=== PATIENT | female | born 1960 | race Two or more races ===

== ENCOUNTER 2019-07-19 18:30 | Inpatient (IN) | payer OTHER ==
[~2019-07-19] VITALS: Ht 165.1 cm; Wt 105.7 kg
[2019-07-19 19:00] VITALS: BP 125/67
[2019-07-19] MEDS ORDERED: NAPROXEN 250 MG TABLET PO PRN (20:00)
[2019-07-19] MEDS ORDERED: DEXTROSE 50%-WATER 25 GM/50 ML SYRINGE IVP PRN (20:00)
[2019-07-19] MEDS ORDERED: LACTULOSE 20 GM/30 ML SOLUTION UDCUP PO PRN (20:00)
[2019-07-19] MEDS ORDERED: BISACODYL 10 MG RECTAL RECTAL SUPPOSITORY PR PRN (20:00)
[2019-07-19] MEDS ORDERED: ATORVASTATIN CALCIUM 40 MG TABLET PO SCH (21:00)
[2019-07-19] MEDS: ACETAMINOPHEN 325 MG TABLET PO PRN (21:50)
[2019-07-19] MEDS: ENOXAPARIN SODIUM 40 MG/0.4 ML PF SYRINGE SQ SCH (21:50)
[2019-07-19] MEDS: DOCUSATE SODIUM 100 MG CAPSULE PO SCH (21:50)
[2019-07-19] MEDS: SENNA 187 MG TABLET PO SCH (21:50)
[2019-07-19 21:53] LABS: GLUCOMETER DEV NAME(LOC) 2WR.2; GLUCOSE,POINT OF CARE 240 MG/DL (70-110)
[2019-07-19] MEDS: INSULIN GLARGINE,HUM.REC.ANLOG 100 UNITS/ML SQ SCH (21:57)
[2019-07-19 22:50] VITALS: BP 120/73
[2019-07-20 06:27] LABS: GLUCOMETER DEV NAME(LOC) PVLAB.8; GLUCOSE,POINT OF CARE 138 MG/DL (70-110)
[2019-07-20 06:41] LABS: BASOPHILS % (AUTO) 0.3 % (0.0-2.0); HEMATOCRIT 38.5 % (36-46); HEMOGLOBIN 12.7 g/dL (12.0-16.0); LYMPHOCYTES # (AUTO) 4.7 K/uL (1.0-4.8); LYMPHOCYTES % (AUTO) 45.1 % (22.0-44.0); MEAN CORPUSCULAR HEMOGLOBIN 27.7 pg (26.0-34.0); MEAN CORPUSCULAR VOLUME 84 fL (80-100); MONOCYTES # (AUTO) 0.6 K/uL (0.1-1.0); MONOCYTES % (AUTO) 5.6 % (2.0-9.0); NEUTROPHILS # (AUTO) 4.8 K/uL (1.8-7.7); PLATELET COUNT (AUTO) 244 K/uL (150-450); RED BLOOD CELL COUNT(AUTO) 4.58 MIL/uL (4.00-5.20); RED CELL DISTRIBUTION WIDTH 14.2 % (11.5-14.5)
[2019-07-20 06:53] LABS: ALANINE AMINOTRANSFERASE 27 U/L (12-78); ALBUMIN 2.9 g/dL (3.4-5.0); ALKALINE PHOSPHATASE 117 U/L (46-116); ANION GAP 7 mmol/L (8-16); ASPARTATE AMINOTRANSFERASE 28 U/L (15-37); BILIRUBIN,TOTAL 0.4 mg/dL (0.1-1.0); CALCIUM, TOTAL 8.7 mg/dL (8.8-10.5); CARBON DIOXIDE 30 mmol/L (22-29); CHLORIDE 104 mmol/L (98-107); CREATININE 0.81 mg/dL (0.60-1.30); GLOMERULAR FILTR. RATE CALC > 60 mL/min (>60); GLUCOSE,RANDOM 150 mg/dL (70-110); POTASSIUM 4.1 mmol/L (3.5-5.1); SODIUM SERUM 141 mmol/L (136-145); TOTAL PROTEIN, SERUM 7.2 g/dL (6.4-8.2); UREA NITROGEN, BLOOD 13 mg/dL (7-18)
[2019-07-20] MEDS: ASPIRIN 81 MG CHEWABLE TABLET PO SCH (08:09)
[2019-07-20] MEDS: DOCUSATE SODIUM 100 MG CAPSULE PO SCH ×2 (08:12→20:34)
[2019-07-20 08:52] VITALS: BP 113/68
[2019-07-20] MEDS: ACETAMINOPHEN 325 MG TABLET PO PRN (08:52)
[2019-07-20] MEDS: TraMADol HCL 50 MG TABLET PO PRN (11:17)
[2019-07-20] MEDS: INSULIN LISPRO 100 UNITS/ML SQ PRN ×3 (12:31→22:02)
[2019-07-20 14:10] LABS: GLUCOMETER DEV NAME(LOC) 2WR.2; GLUCOSE,POINT OF CARE 180 MG/DL (70-110)
[2019-07-20 15:30] VITALS: BP 96/56
[2019-07-20 17:48] LABS: GLUCOMETER DEV NAME(LOC) 2WR.2; GLUCOSE,POINT OF CARE 147 MG/DL (70-110)
[2019-07-20] MEDS: SENNA 187 MG TABLET PO SCH ×2 (20:34→20:36)
[2019-07-20] MEDS: SIMVASTATIN 40 MG TABLET PO SCH (20:34)
[2019-07-20] MEDS: ENOXAPARIN SODIUM 40 MG/0.4 ML PF SYRINGE SQ SCH (20:34)
[2019-07-20] MEDS: INSULIN GLARGINE,HUM.REC.ANLOG 100 UNITS/ML SQ SCH (21:05)
[2019-07-20 21:11] LABS: GLUCOMETER DEV NAME(LOC) 2WR.2; GLUCOSE,POINT OF CARE 171 MG/DL (70-110)
[2019-07-21 06:33] VITALS: BP 101/55
[2019-07-21 06:35] LABS: GLUCOMETER DEV NAME(LOC) 2WR.1C; GLUCOSE,POINT OF CARE 133 MG/DL (70-110)
[2019-07-21] MEDS: ASPIRIN 81 MG CHEWABLE TABLET PO SCH (07:49)
[2019-07-21] MEDS: DOCUSATE SODIUM 100 MG CAPSULE PO SCH ×2 (07:49→21:22)
[2019-07-21 08:56] VITALS: BP 112/56
[2019-07-21] MEDS: INSULIN LISPRO 100 UNITS/ML SQ PRN ×3 (12:45→21:33)
[2019-07-21 14:05] VITALS: BP 131/75
[2019-07-21] MEDS: TraMADol HCL 50 MG TABLET PO PRN (14:18)
[2019-07-21 15:05] VITALS: BP 116/66
[2019-07-21] MEDS ORDERED: *PATIENT'S OWN MED [ENTER DRUG, DOSE, FREQUENCY IN COMMENTS] CLINICAL ONE (17:15)
[2019-07-21 17:38] LABS: GLUCOMETER DEV NAME(LOC) 2WR.1C; GLUCOSE,POINT OF CARE 160 MG/DL (70-110)
[2019-07-21 17:38] LABS: GLUCOMETER DEV NAME(LOC) 2WR.1C; GLUCOSE,POINT OF CARE 142 MG/DL (70-110)
[2019-07-21] MEDS: ENOXAPARIN SODIUM 40 MG/0.4 ML PF SYRINGE SQ SCH (21:21)
[2019-07-21] MEDS: KETOTIFEN OU SCH (21:21)
[2019-07-21] MEDS: SIMVASTATIN 40 MG TABLET PO SCH (21:22)
[2019-07-21] MEDS: SENNA 187 MG TABLET PO SCH (21:22)
[2019-07-21] MEDS: INSULIN GLARGINE,HUM.REC.ANLOG 100 UNITS/ML SQ SCH (21:32)
[2019-07-21 22:09] LABS: GLUCOMETER DEV NAME(LOC) 2WR.2; GLUCOSE,POINT OF CARE 180 MG/DL (70-110)
[2019-07-22 00:28] VITALS: BP 125/71
[2019-07-22 06:27] LABS: GLUCOMETER DEV NAME(LOC) 2WR.1C; GLUCOSE,POINT OF CARE 146 MG/DL (70-110)
[2019-07-22 07:15] VITALS: BP 107/71
[2019-07-22] MEDS: KETOTIFEN OU SCH ×2 (07:54→21:05)
[2019-07-22] MEDS: ASPIRIN 81 MG CHEWABLE TABLET PO SCH (07:54)
[2019-07-22] MEDS: DOCUSATE SODIUM 100 MG CAPSULE PO SCH ×2 (07:55→21:02)
[2019-07-22] MEDS: INSULIN LISPRO 100 UNITS/ML SQ PRN ×3 (07:59→21:13)
[2019-07-22] MEDS: ACETAMINOPHEN 325 MG TABLET PO PRN ×2 (10:14→14:16)
[2019-07-22 12:47] LABS: GLUCOMETER DEV NAME(LOC) 2WR.2; GLUCOSE,POINT OF CARE 191 MG/DL (70-110)
[2019-07-22 15:10] VITALS: BP 140/66
[2019-07-22 19:11] LABS: GLUCOMETER DEV NAME(LOC) 2WR.2; GLUCOSE,POINT OF CARE 150 MG/DL (70-110)
[2019-07-22] MEDS: SENNA 187 MG TABLET PO SCH (21:02)
[2019-07-22] MEDS: SIMVASTATIN 40 MG TABLET PO SCH (21:02)
[2019-07-22] MEDS: ENOXAPARIN SODIUM 40 MG/0.4 ML PF SYRINGE SQ SCH (21:03)
[2019-07-22] MEDS: INSULIN GLARGINE,HUM.REC.ANLOG 100 UNITS/ML SQ SCH (21:12)
[2019-07-22 22:25] LABS: GLUCOMETER DEV NAME(LOC) 2WR.1C; GLUCOSE,POINT OF CARE 242 MG/DL (70-110)
[2019-07-23 06:34] VITALS: BP 99/59
[2019-07-23 06:40] LABS: GLUCOMETER DEV NAME(LOC) 2WR.2; GLUCOSE,POINT OF CARE 190 MG/DL (70-110)
[2019-07-23] MEDS: ASPIRIN 81 MG CHEWABLE TABLET PO SCH (07:55)
[2019-07-23] MEDS: KETOTIFEN OU SCH ×2 (07:55→20:50)
[2019-07-23] MEDS: DOCUSATE SODIUM 100 MG CAPSULE PO SCH ×2 (07:55→20:49)
[2019-07-23] MEDS: INSULIN LISPRO 100 UNITS/ML SQ PRN ×4 (07:56→20:54)
[2019-07-23 08:16] VITALS: BP 102/65
[2019-07-23] MEDS: ACETAMINOPHEN 325 MG TABLET PO PRN (08:16)
[2019-07-23] MEDS: DULoxetine HCL 30 MG CAPSULE PO SCH (12:22)
[2019-07-23 15:45] VITALS: BP 98/54
[2019-07-23] MEDS: GABAPENTIN 100 MG CAPSULE PO SCH ×3 (16:36→21:00)
[2019-07-23] MEDS: SIMVASTATIN 40 MG TABLET PO SCH (20:49)
[2019-07-23] MEDS: SENNA 187 MG TABLET PO SCH (20:49)
[2019-07-23] MEDS: INSULIN GLARGINE,HUM.REC.ANLOG 100 UNITS/ML SQ SCH (20:53)
[2019-07-23] MEDS: ENOXAPARIN SODIUM 40 MG/0.4 ML PF SYRINGE SQ SCH (20:57)
[2019-07-23 23:09] LABS: GLUCOMETER DEV NAME(LOC) 2WR.1C; GLUCOSE,POINT OF CARE 146 MG/DL (70-110)
[2019-07-23 23:09] LABS: GLUCOMETER DEV NAME(LOC) 2WR.1C; GLUCOSE,POINT OF CARE 240 MG/DL (70-110)
[2019-07-23 23:09] LABS: GLUCOMETER DEV NAME(LOC) 2WR.1C; GLUCOSE,POINT OF CARE 142 MG/DL (70-110)
[2019-07-23 23:11] VITALS: BP 131/76
[2019-07-24 05:49] LABS: GLUCOMETER DEV NAME(LOC) 2WR.1C; GLUCOSE,POINT OF CARE 123 MG/DL (70-110)
[2019-07-24 07:50] VITALS: BP 116/73
[2019-07-24] MEDS: GABAPENTIN 100 MG CAPSULE PO SCH ×2 (08:00→16:00)
[2019-07-24] MEDS: DULoxetine HCL 30 MG CAPSULE PO SCH (08:00)
[2019-07-24] MEDS: ASPIRIN 81 MG CHEWABLE TABLET PO SCH (08:01)
[2019-07-24] MEDS: KETOTIFEN OU SCH ×2 (08:01→20:41)
[2019-07-24] MEDS: DOCUSATE SODIUM 100 MG CAPSULE PO SCH ×2 (08:01→20:41)
[2019-07-24] MEDS: ACETAMINOPHEN 325 MG TABLET PO PRN (09:24)
[2019-07-24 15:47] VITALS: BP 113/70
[2019-07-24] MEDS: INSULIN LISPRO 100 UNITS/ML SQ PRN ×2 (18:04→20:55)
[2019-07-24] MEDS: ENOXAPARIN SODIUM 40 MG/0.4 ML PF SYRINGE SQ SCH (20:41)
[2019-07-24] MEDS: SIMVASTATIN 40 MG TABLET PO SCH (20:41)
[2019-07-24] MEDS: SENNA 187 MG TABLET PO SCH (20:42)
[2019-07-24] MEDS: INSULIN GLARGINE,HUM.REC.ANLOG 100 UNITS/ML SQ SCH (20:54)
[2019-07-24] MEDS ORDERED: [UNRECOGNIZED DRUG - OTHER] OU SCH (21:00)
[2019-07-24 21:10] LABS: GLUCOMETER DEV NAME(LOC) 2WR.1C; GLUCOSE,POINT OF CARE 171 MG/DL (70-110)
[2019-07-24 21:10] LABS: GLUCOMETER DEV NAME(LOC) 2WR.1C; GLUCOSE,POINT OF CARE 149 MG/DL (70-110)
[2019-07-24 21:10] LABS: GLUCOMETER DEV NAME(LOC) 2WR.1C; GLUCOSE,POINT OF CARE 203 MG/DL (70-110)
[2019-07-24 23:58] VITALS: BP 117/70
[2019-07-25 05:53] LABS: GLUCOMETER DEV NAME(LOC) 2WR.1C; GLUCOSE,POINT OF CARE 139 MG/DL (70-110)
[2019-07-25 07:00] VITALS: BP 99/53
[2019-07-25] MEDS: DOCUSATE SODIUM 100 MG CAPSULE PO SCH ×2 (09:03→20:56)
[2019-07-25] MEDS: DULoxetine HCL 30 MG CAPSULE PO SCH (09:03)
[2019-07-25] MEDS: ASPIRIN 81 MG CHEWABLE TABLET PO SCH (09:03)
[2019-07-25] MEDS: INSULIN LISPRO 100 UNITS/ML SQ PRN ×2 (12:22→21:06)
[2019-07-25 12:23] LABS: GLUCOMETER DEV NAME(LOC) 2WR.1C; GLUCOSE,POINT OF CARE 163 MG/DL (70-110)
[2019-07-25 15:30] VITALS: BP 122/68
[2019-07-25 20:47] LABS: GLUCOMETER DEV NAME(LOC) 2WR.1C; GLUCOSE,POINT OF CARE 136 MG/DL (70-110)
[2019-07-25] MEDS: SENNA 187 MG TABLET PO SCH (20:56)
[2019-07-25] MEDS: SIMVASTATIN 40 MG TABLET PO SCH (20:56)
[2019-07-25] MEDS: ENOXAPARIN SODIUM 40 MG/0.4 ML PF SYRINGE SQ SCH (20:56)
[2019-07-25] MEDS: KETOTIFEN OU SCH (20:56)
[2019-07-25] MEDS: INSULIN GLARGINE,HUM.REC.ANLOG 100 UNITS/ML SQ SCH (21:05)
[2019-07-25 21:42] LABS: GLUCOMETER DEV NAME(LOC) 2WR.2; GLUCOSE,POINT OF CARE 202 MG/DL (70-110)
[2019-07-25 23:38] VITALS: BP 124/63
[2019-07-26 06:39] LABS: GLUCOMETER DEV NAME(LOC) 2WR.1C; GLUCOSE,POINT OF CARE 125 MG/DL (70-110)
[2019-07-26 07:30] VITALS: BP 127/78
[2019-07-26] MEDS: DOCUSATE SODIUM 100 MG CAPSULE PO SCH ×2 (08:05→21:37)
[2019-07-26] MEDS: DULoxetine HCL 30 MG CAPSULE PO SCH (08:05)
[2019-07-26] MEDS: ASPIRIN 81 MG CHEWABLE TABLET PO SCH (08:06)
[2019-07-26] MEDS: ACETAMINOPHEN 325 MG TABLET PO PRN ×2 (08:23→15:36)
[2019-07-26] MEDS: INSULIN LISPRO 100 UNITS/ML SQ PRN ×2 (12:46→21:41)
[2019-07-26 12:53] LABS: GLUCOMETER DEV NAME(LOC) 2WR.2; GLUCOSE,POINT OF CARE 146 MG/DL (70-110)
[2019-07-26 15:00] VITALS: BP 119/75
[2019-07-26 18:41] LABS: GLUCOMETER DEV NAME(LOC) 2WR.2; GLUCOSE,POINT OF CARE 127 MG/DL (70-110)
[2019-07-26] MEDS: SIMVASTATIN 40 MG TABLET PO SCH (21:36)
[2019-07-26] MEDS: ENOXAPARIN SODIUM 40 MG/0.4 ML PF SYRINGE SQ SCH (21:36)
[2019-07-26] MEDS: KETOTIFEN OU SCH (21:36)
[2019-07-26] MEDS: SENNA 187 MG TABLET PO SCH (21:36)
[2019-07-26] MEDS: INSULIN GLARGINE,HUM.REC.ANLOG 100 UNITS/ML SQ SCH (21:40)
[2019-07-26 22:05] LABS: GLUCOMETER DEV NAME(LOC) 2WR.1C; GLUCOSE,POINT OF CARE 196 MG/DL (70-110)
[2019-07-27 00:06] VITALS: BP 103/73
[2019-07-27 06:20] LABS: GLUCOMETER DEV NAME(LOC) 2WR.2; GLUCOSE,POINT OF CARE 124 MG/DL (70-110)
[2019-07-27] MEDS: ASPIRIN 81 MG CHEWABLE TABLET PO SCH (08:26)
[2019-07-27] MEDS: DOCUSATE SODIUM 100 MG CAPSULE PO SCH ×2 (08:26→21:25)
[2019-07-27] MEDS: DULoxetine HCL 30 MG CAPSULE PO SCH (08:26)
[2019-07-27 08:36] VITALS: BP 114/70
[2019-07-27 12:22] LABS: GLUCOMETER DEV NAME(LOC) 2WR.2; GLUCOSE,POINT OF CARE 147 MG/DL (70-110)
[2019-07-27] MEDS: INSULIN LISPRO 100 UNITS/ML SQ PRN ×3 (12:29→21:32)
[2019-07-27] MEDS: ACETAMINOPHEN 325 MG TABLET PO PRN (13:26)
[2019-07-27 16:00] VITALS: BP 155/88
[2019-07-27 18:17] LABS: GLUCOMETER DEV NAME(LOC) 2WR.2; GLUCOSE,POINT OF CARE 145 MG/DL (70-110)
[2019-07-27] MEDS: ENOXAPARIN SODIUM 40 MG/0.4 ML PF SYRINGE SQ SCH (21:24)
[2019-07-27] MEDS: SIMVASTATIN 40 MG TABLET PO SCH (21:25)
[2019-07-27] MEDS: SENNA 187 MG TABLET PO SCH (21:25)
[2019-07-27] MEDS: KETOTIFEN OU SCH (21:25)
[2019-07-27] MEDS: INSULIN GLARGINE,HUM.REC.ANLOG 100 UNITS/ML SQ SCH (21:31)
[2019-07-27 21:51] LABS: GLUCOMETER DEV NAME(LOC) 2WR.2; GLUCOSE,POINT OF CARE 143 MG/DL (70-110)
[2019-07-28 06:14] VITALS: BP 92/58
[2019-07-28 06:20] LABS: GLUCOMETER DEV NAME(LOC) 2WR.1C; GLUCOSE,POINT OF CARE 127 MG/DL (70-110)
[2019-07-28 07:17] VITALS: BP 137/78
[2019-07-28] MEDS: ASPIRIN 81 MG CHEWABLE TABLET PO SCH (08:18)
[2019-07-28] MEDS: DULoxetine HCL 30 MG CAPSULE PO SCH (08:18)
[2019-07-28] MEDS: DOCUSATE SODIUM 100 MG CAPSULE PO SCH ×2 (08:18→20:16)
[2019-07-28] MEDS: ACETAMINOPHEN 325 MG TABLET PO PRN (09:06)
[2019-07-28 11:56] LABS: GLUCOMETER DEV NAME(LOC) 2WR.2; GLUCOSE,POINT OF CARE 115 MG/DL (70-110)
[2019-07-28 15:49] VITALS: BP 115/72
[2019-07-28] MEDS: INSULIN LISPRO 100 UNITS/ML SQ PRN ×2 (18:14→20:15)
[2019-07-28 18:25] LABS: GLUCOMETER DEV NAME(LOC) 2WR.1C; GLUCOSE,POINT OF CARE 142 MG/DL (70-110)
[2019-07-28] MEDS: INSULIN GLARGINE,HUM.REC.ANLOG 100 UNITS/ML SQ SCH (20:15)
[2019-07-28] MEDS: SIMVASTATIN 40 MG TABLET PO SCH (20:16)
[2019-07-28] MEDS: ENOXAPARIN SODIUM 40 MG/0.4 ML PF SYRINGE SQ SCH (20:16)
[2019-07-28] MEDS: SENNA 187 MG TABLET PO SCH (20:16)
[2019-07-28] MEDS: KETOTIFEN OU SCH (20:17)
[2019-07-28 20:39] LABS: GLUCOMETER DEV NAME(LOC) 2WR.2; GLUCOSE,POINT OF CARE 167 MG/DL (70-110)
[2019-07-28 23:44] VITALS: BP 125/79
[2019-07-29 04:28] VITALS: BP 132/74
[2019-07-29 06:16] LABS: GLUCOMETER DEV NAME(LOC) 2WR.2; GLUCOSE,POINT OF CARE 139 MG/DL (70-110)
[2019-07-29 07:37] VITALS: BP 128/68
[2019-07-29] MEDS: DOCUSATE SODIUM 100 MG CAPSULE PO SCH ×2 (08:16→20:48)
[2019-07-29] MEDS: ASPIRIN 81 MG CHEWABLE TABLET PO SCH (08:16)
[2019-07-29] MEDS: DULoxetine HCL 30 MG CAPSULE PO SCH ×2 (08:16→09:00)
[2019-07-29 12:56] LABS: GLUCOMETER DEV NAME(LOC) 2WR.2; GLUCOSE,POINT OF CARE 121 MG/DL (70-110)
[2019-07-29 15:30] VITALS: BP 115/69
[2019-07-29] MEDS: INSULIN LISPRO 100 UNITS/ML SQ PRN ×2 (18:47→20:53)
[2019-07-29] MEDS: KETOTIFEN OU SCH (20:48)
[2019-07-29] MEDS: SENNA 187 MG TABLET PO SCH (20:48)
[2019-07-29] MEDS: SIMVASTATIN 40 MG TABLET PO SCH (20:48)
[2019-07-29] MEDS: ENOXAPARIN SODIUM 40 MG/0.4 ML PF SYRINGE SQ SCH (20:48)
[2019-07-29] MEDS: INSULIN GLARGINE,HUM.REC.ANLOG 100 UNITS/ML SQ SCH (20:52)
[2019-07-29 22:16] LABS: GLUCOMETER DEV NAME(LOC) 2WR.1C; GLUCOSE,POINT OF CARE 144 MG/DL (70-110)
[2019-07-30 00:28] LABS: GLUCOMETER DEV NAME(LOC) 2WR.2; GLUCOSE,POINT OF CARE 159 MG/DL (70-110)
[2019-07-30 02:34] VITALS: BP 122/67
[2019-07-30] MEDS: ACETAMINOPHEN 325 MG TABLET PO PRN ×2 (02:34→09:08)
[2019-07-30 06:31] LABS: GLUCOMETER DEV NAME(LOC) 2WR.2; GLUCOSE,POINT OF CARE 153 MG/DL (70-110)
[2019-07-30 07:30] VITALS: BP 127/69
[2019-07-30] MEDS: DOCUSATE SODIUM 100 MG CAPSULE PO SCH ×2 (07:45→21:15)
[2019-07-30] MEDS: ASPIRIN 81 MG CHEWABLE TABLET PO SCH (07:45)
[2019-07-30] MEDS: DULoxetine HCL 30 MG CAPSULE PO SCH (07:46)
[2019-07-30] MEDS: INSULIN LISPRO 100 UNITS/ML SQ PRN ×3 (07:49→21:20)
[2019-07-30 16:42] VITALS: BP 107/67
[2019-07-30 17:42] LABS: GLUCOMETER DEV NAME(LOC) 2WR.1C; GLUCOSE,POINT OF CARE 146 MG/DL (70-110)
[2019-07-30 17:42] LABS: GLUCOMETER DEV NAME(LOC) 2WR.1C; GLUCOSE,POINT OF CARE 131 MG/DL (70-110)
[2019-07-30] MEDS: KETOTIFEN OU SCH (21:15)
[2019-07-30] MEDS: SIMVASTATIN 40 MG TABLET PO SCH (21:15)
[2019-07-30] MEDS: SENNA 187 MG TABLET PO SCH (21:15)
[2019-07-30] MEDS: INSULIN GLARGINE,HUM.REC.ANLOG 100 UNITS/ML SQ SCH (21:19)
[2019-07-30 21:32] LABS: GLUCOMETER DEV NAME(LOC) 2WR.1C; GLUCOSE,POINT OF CARE 241 MG/DL (70-110)
[2019-07-30] MEDS ORDERED: DOCU-275 PO (23:01)
[2019-07-30] MEDS ORDERED: ASPI81TA39 PO (23:01)
[2019-07-30] MEDS ORDERED: KETO10DR3 OU (23:02)
[2019-07-30] MEDS ORDERED: SIMV-261 PO (23:02)
[2019-07-30] MEDS ORDERED: INSLAN SQ (23:03)
[2019-07-30] MEDS ORDERED: INSU100V SQ (23:03)
[2019-07-30 23:30] VITALS: BP 115/57
[2019-07-31 06:23] LABS: GLUCOMETER DEV NAME(LOC) 2WR.2; GLUCOSE,POINT OF CARE 144 MG/DL (70-110)
[2019-07-31 07:30] VITALS: BP 99/71
[2019-07-31] MEDS: ASPIRIN 81 MG CHEWABLE TABLET PO SCH (07:30)
[2019-07-31] MEDS: ACETAMINOPHEN 325 MG TABLET PO PRN (07:30)
[2019-07-31] MEDS: DOCUSATE SODIUM 100 MG CAPSULE PO SCH ×2 (07:31→20:11)
[2019-07-31] MEDS: INSULIN LISPRO 100 UNITS/ML SQ PRN ×3 (07:33→20:21)
[2019-07-31 12:21] LABS: GLUCOMETER DEV NAME(LOC) 2WR.2; GLUCOSE,POINT OF CARE 146 MG/DL (70-110)
[2019-07-31 16:29] VITALS: BP 104/59
[2019-07-31 17:44] LABS: GLUCOMETER DEV NAME(LOC) 2WR.1C; GLUCOSE,POINT OF CARE 134 MG/DL (70-110)
[2019-07-31] MEDS: KETOTIFEN OU SCH (20:11)
[2019-07-31] MEDS: SENNA 187 MG TABLET PO SCH (20:11)
[2019-07-31] MEDS: SIMVASTATIN 40 MG TABLET PO SCH (20:11)
[2019-07-31] MEDS: INSULIN GLARGINE,HUM.REC.ANLOG 100 UNITS/ML SQ SCH (20:20)
[2019-07-31 21:36] LABS: GLUCOMETER DEV NAME(LOC) 2WR.1C; GLUCOSE,POINT OF CARE 192 MG/DL (70-110)
[2019-08-01 05:08] VITALS: BP 97/63
[2019-08-01 07:47] VITALS: BP 107/87
[2019-08-01] MEDS: ASPIRIN 81 MG CHEWABLE TABLET PO SCH (08:07)
[2019-08-01] MEDS: DOCUSATE SODIUM 100 MG CAPSULE PO SCH (08:07)
[2019-08-01] MEDS: INSULIN LISPRO 100 UNITS/ML SQ PRN ×2 (08:09→12:29)
[2019-08-01 08:29] LABS: GLUCOMETER DEV NAME(LOC) 2WR.1C; GLUCOSE,POINT OF CARE 145 MG/DL (70-110)
[2019-08-01 13:14] LABS: GLUCOMETER DEV NAME(LOC) 2WR.2; GLUCOSE,POINT OF CARE 145 MG/DL (70-110)
== END 2019-08-01 12:00 | disposition home or self-care (01) | DRG 56 ==
LOC: 2WR 18:30
PROVIDERS: ADMIT Physical Medicine & Rehabilitation; ATTEND Physical Medicine & Rehabilitation
DX: I69.354 Hemiplegia and hemiparesis following cerebral infarction affecting left non-dominant side (principal); I63.9 Cerebral infarction, unspecified; I10 Essential (primary) hypertension; I25.10 Atherosclerotic heart disease of native coronary artery without angina pectoris; E11.9 Type 2 diabetes mellitus without complications; E78.5 Hyperlipidemia, unspecified; D72.820 Lymphocytosis (symptomatic); E66.9 Obesity, unspecified; F41.9 Anxiety disorder, unspecified; G51.0 Bell's palsy; G89.29 Other chronic pain; I44.0 Atrioventricular block, first degree; I65.21 Occlusion and stenosis of right carotid artery; K59.00 Constipation, unspecified; R13.10 Dysphagia, unspecified; M54.5 Low back pain; Z95.5 Presence of coronary angioplasty implant and graft; Z79.82 Long term (current) use of aspirin; Z79.899 Other long term (current) drug therapy
CPT/HCPCS: 87081; 92507; 92508; 92523; 93005; 97110; 97112; 97116; 97150; 97163; 97167; 97530; 97535; 99366; J1650; J1815